=== PATIENT | male | born 1985 | race Two or more races ===

== ENCOUNTER 2019-12-11 17:46 | Emergency (ER) | payer SELFPAY ==
[~2019-12-11] VITALS: Ht 162.6 cm; Wt 71.7 kg
[2019-12-11 18:23] VITALS: BP 122/84
== END 2019-12-11 21:18 | disposition home or self-care (01) ==
LOC: EDBD 17:47 → ER 17:47
DX: S31.821D Laceration without foreign body of left buttock, subsequent encounter (principal); W45.8XXD Other foreign body or object entering through skin, subsequent encounter
CPT/HCPCS: 99281

== ENCOUNTER 2019-12-13 22:04 | Emergency (ER) | payer SELFPAY ==
[~2019-12-13] VITALS: Ht 162.6 cm; Wt 68.2 kg
[2019-12-13 22:07] VITALS: BP 132/80
== END 2019-12-13 23:53 | disposition home or self-care (01) ==
LOC: ER 22:05
DX: S31.821D Laceration without foreign body of left buttock, subsequent encounter (principal); W19.XXXD Unspecified fall, subsequent encounter
CPT/HCPCS: 99281; 99282

== ENCOUNTER 2019-12-17 10:53 | Emergency (ER) | payer SELFPAY ==
[~2019-12-17] VITALS: Ht 172.7 cm; Wt 70.5 kg
[2019-12-17 10:55] VITALS: BP 113/76
--- NOTE | 2019-12-17 11:41 | NUR ---
pt is 34 yo male c/o lac to left buttock s/p fall, is here for a wound recheck, amb with steady gait
[2019-12-17] MEDS ORDERED: amox tr/potassium clavulanate 875/125mg TAB PO ONE (12:00)
[2019-12-17] MEDS ORDERED: sulfamethoxazole/trimethoprim DS (800/160mg) tablet PO ONE (12:00)
[2019-12-17] MEDS ORDERED: AMOX-117 PO (12:01)
[2019-12-17] MEDS ORDERED: CEPH250T PO (12:01)
== END 2019-12-17 13:11 | disposition home or self-care (01) ==
LOC: ER 10:54
DX: Z48.01 Encounter for change or removal of surgical wound dressing (principal); Z79.899 Other long term (current) drug therapy
CPT/HCPCS: 99283